=== PATIENT | male | born 1940 | race Caucasian/White ===

== ENCOUNTER → 2021-03-07 | Outpatient (CLI) | payer OTHER | END | disposition home or self-care (01) | LOC: OIH 12:38 | PROVIDERS: ATTEND Family Medicine | DX: Z13.6 Encounter for screening for cardiovascular disorders (principal) | CPT/HCPCS: 75571 ==

== ENCOUNTER 2022-03-07 05:47 | Emergency (ER) | payer MEDICARE, OTHER ==
[~2022-03-07] VITALS: Ht 170.2 cm; Wt 99.8 kg
[2022-03-07] MEDS ORDERED: MORPHINE 4 MG SYG ONE (06:15)
[2022-03-07] MEDS ORDERED: MORPHINE 4 MG SYG IVP SCH (06:30)
[2022-03-07] MEDS ORDERED: HYDROCORTISONE 25 MG SUPPOSITORY PR SCH (06:30)
[2022-03-07 06:53] LABS: APPEARANCE,URINE CLEAR (CLEAR); BILIRUBIN,URINE NEGATIVE (NEGATIVE); COLOR,URINE LIGHT-YELLOW (YELLOW); GLUCOSE, URINE (UA) NEGATIVE (NEGATIVE); KETONES,URINE NEGATIVE (NEGATIVE); LEUKOCYTE ESTERASE ,URINE NEGATIVE Leu/uL (NEGATIVE); NITRATE,URINE NEGATIVE (NEGATIVE); PROTEIN,URINE 10 mg/dL (NEGATIVE); UROBILINOGEN,URINE 0.2 mg/dL (0.2-1.0)
[2022-03-07 06:55] LABS: MUCUS,URINE RARE LPF (None Seen)
[2022-03-07 06:57] LABS: BASOPHILS % (AUTO) 0.4 % (0.0-5.0); EOSINOPHILS % (AUTO) 1.2 % (0.0-8.0); HEMATOCRIT 33.7 % (42-54); LYMPHOCYTES % (AUTO) 11.9 % (21.0-51.0); MEAN CORPUSCULAR HEMOGLOBIN 32.9 pg (27.0-33.0); MEAN CORPUSCULAR HGB CONC 33.8 g/dL (32.0-36.0); MEAN CORPUSCULAR VOLUME 97.1 fL (79-99); MONOCYTES % (AUTO) 9.2 % (3.0-13.0); NEUTROPHILS % (AUTO) 76.9 % (40.0-77.0); PLATELET COUNT (AUTO) 237 K/uL (130-400); RED BLOOD CELL COUNT(AUTO) 3.47 MIL/uL (4.50-6.20); RED CELL DISTRIBUTION WIDTH 13.3 % (11.0-15.5); WHITE BLOOD COUNT (AUTO) 8.3 K/uL (4.8-10.8)
[2022-03-07 07:03] LABS: ALBUMIN 3.2 g/dL (3.5-5.0); CREATININE 0.8 mg/dL (0.5-1.5); POTASSIUM 3.6 mmol/L (3.5-5.1); TOTAL PROTEIN, SERUM 7.3 g/dL (6.0-8.3)
[2022-03-07] MEDS ORDERED: HYDR30CR79 RC (09:06)
[2022-03-07 09:36] VITALS: BP 151/76
== END 2022-03-07 09:39 | disposition home or self-care (01) ==
LOC: EDH 05:47
DX: K59.00 Constipation, unspecified (principal); K64.4 Residual hemorrhoidal skin tags; R33.9 Retention of urine, unspecified; Z79.899 Other long term (current) drug therapy
CPT/HCPCS: 99284; 74176; 96374; 80053; 85025; 81001; 36415; J2270